=== PATIENT | male | born 2000 | race Caucasian/White ===

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

== ENCOUNTER 2022-08-10 12:30 | Outpatient (CLI) | payer MEDICAID ==
--- NOTE | 2022-08-10 16:48 | Ultrasound Report ---
PROCEDURE: Testicle INDICATIONS: SCROTAL MASS TECHNIQUE: Real-time scanning was performed of the scrotum and testicles, with image documentation. Color and p ulse Doppler interrogation was performed of both testicles. COMPARISON: None. FINDINGS: Right: Testicle is normal in size at 5.3 x 2.2 x 3.0 cm, and homogenous in echotexture. Epididymis is normal in overall size and morphology. There is an anechoic right epididymal head cyst which measu res 11 mm in diameter and corresponds with the region palpated by the patient. No hydrocele or varico laure. Overlying scrotal skin is normal in thickness. Left: Testicle is normal in size at 5.1 x 2.2 x 3.3 cm, and homogeneous in echotexture. Epididymis is normal in overall size and morphology. No hydrocele or varicoceles. Overlying scrotal skin is no rmal in thickness. Doppler: Color and pulse Doppler demonstrate normal and symmetric arterial flow in both testicles. IMPRESSION: 1. Right epididymal head cyst which corresponds as palpated by the patient. Otherwise unremarkable te sticular ultrasound. Reviewed by: Carmela Parra MD on 08/10/2022 4:47 PM PST Approved by: Carmela Parra MD on 08/10/2022 4:47 PM PST Station ID: [id number]
== END 2022-08-10 12:31 | disposition home or self-care (01) ==
LOC: DI 12:30
PROVIDERS: ATTEND Physician Assistant
DX: N50.3 Cyst of epididymis (principal)